=== PATIENT | female | born 1965 | race Caucasian/White ===

== ENCOUNTER → 2019-07-13 | Outpatient (CLI) | payer BC ==
--- NOTE | 2019-07-13 09:58 | REP ---
Clinical: Persistent asthma. Technique: Axial noncontrast images from the thoracic inlet to the upper abdomen with coronal and sagittal re-formations. Findings: Bilateral lung francois are well-aerated and clear. No consolidation, nodule or mass. No effusion or pneumothorax. Tracheobronchial tree is patent. No adenopathy. Mediastinum demonstrates relatively normal thoracic aorta, pulmonary vasculature, and heart/pericardium. Surrounding musculoskeletal structures are intact. Impression: No acute mediastinal or pleuroparenchymal process. Electronically Signed by Hao Mandujano MD 07/13/2019 09:49 A
== END ==
LOC: M RAD 08:55
PROVIDERS: ATTEND Nurse Practitioner Adult Health
DX: R91.8 Other nonspecific abnormal finding of lung field (principal)

== ENCOUNTER → 2020-07-17 | Outpatient (CLI) | payer BC ==
--- NOTE | 2020-07-17 16:06 | REP ---
INDICATION: ABN FINDINGS LUNG FIELD. COMPARISON: Chest CT without IV contrast dated 07/13/2019. TECHNIQUE: Chest CT without IV contrast. FINDINGS: There are no infiltrates or pleural effusions. There are no masses or nodules. The lung francois are otherwise clear. I suspect there is mild bronchiectasis. This should be confirmed clinically. There is no mediastinal or axillary lymph node enlargement. The thoracic aorta is unremarkable. Cardiac size is normal. The visualized upper abdominal contents are unremarkable. IMPRESSION: Essentially negative CT study of the chest except for possibly mild bronchiectasis. This should be confirmed clinically. <Electronically signed by Hank Carl > 07/17/20 [id number]
== END ==
LOC: M RAD 11:11
PROVIDERS: ATTEND Nurse Practitioner Adult Health
DX: R91.8 Other nonspecific abnormal finding of lung field (principal)

== ENCOUNTER → 2021-02-04 | Outpatient (CLI) | payer BC ==
--- NOTE | 2021-02-04 10:32 | REP ---
INDICATION: ABN FINDING OF LUNG, NICOTINE DEPENDENCE COMPARISON: 07/17/2020 TECHNIQUE: Axial noncontrast images from the thoracic inlet to the upper abdomen with coronal and sagittal reformations. This CT examination was performed using the following dose reduction techniques: Automated exposure control, adjustment of mA and/or kv according to the patient's size, and use of iterative reconstruction technique. FINDINGS: The bilateral lung francois are well aerated and clear. No consolidation, nodule or mass. No effusion. No pneumothorax. Tracheobronchial tree is patent and relatively normal. Very minimal bronchiectasis is again suggested but stable. No adenopathy. Thoracic aorta, pulmonary vasculature, and heart/pericardium are within normal limits. Surrounding musculoskeletal structures intact. Limited upper abdomen demonstrates normal bilateral adrenal glands. IMPRESSION: No acute mediastinal or pleuroparenchymal process. <Electronically signed by Hao Mandujano > 02/04/21 1020
== END ==
LOC: M RAD 09:57
PROVIDERS: ATTEND Nurse Practitioner Adult Health
DX: R91.8 Other nonspecific abnormal finding of lung field (principal); F17.208 Nicotine dependence, unspecified, with other nicotine-induced disorders

== ENCOUNTER → 2022-12-08 | Outpatient (CLI) | payer BC | LOC: M RAD 10:43 | PROVIDERS: ATTEND Nurse Practitioner Adult Health | DX: J45.40 Moderate persistent asthma, uncomplicated (principal) ==

== ENCOUNTER → 2024-06-06 | Outpatient (CLI) | payer BC | LOC: M PLAIMG 12:35 | PROVIDERS: ATTEND Otolaryngology | DX: J33.0 Polyp of nasal cavity (principal) ==

== ENCOUNTER → 2024-08-24 | Outpatient (CLI) | payer BC ==
[~2024-08-24] MED LIST: BREO1INH INH; LOSA25TA13 PO; VENL37.598 PO; XHAN93MI
== END ==
LOC: M EKG 10:38
PROVIDERS: ATTEND Anesthesiology
DX: I10 Essential (primary) hypertension (principal)

== ENCOUNTER 2024-08-29 10:25 | Day surgery (SDC) | payer BC ==
[~2024-08-29] VITALS: Ht 154.9 cm; Wt 59.1 kg
[2024-08-29] MEDS ORDERED: SUGAMMADEX SODIUM 500 MG/5 ML VIAL (BRIDION) As Ordered ONE (13:47)
[2024-08-29] MEDS ORDERED: propofoL 200 MG/20 ML VIAL As Ordered ONE (13:47)
[2024-08-29] MEDS ORDERED: LIDOCAINE 2% 100MG/5ML SDV (FOR ANES.) As Ordered ONE (13:47)
[2024-08-29] MEDS ORDERED: ROCURONIUM BROMIDE 50MG/5ML VIAL As Ordered ONE (13:47)
[2024-08-29] MEDS ORDERED: ONDANSETRON 4MG 2ML VIAL As Ordered ONE (13:49)
[2024-08-29] MEDS ORDERED: MIDAZOLAM INJ 2MG/2ML VIAL As Ordered ONE (14:10)
[2024-08-29] MEDS ORDERED: fentaNYL 250 MCG/5 ML INJECTION As Ordered ONE (14:10)
[2024-08-29] MEDS ORDERED: PHENYLephrine 500MCG 5ML (100MCG/ML) SYRINGE As Ordered ONE (14:55)
[2024-08-29] MEDS ORDERED: ACETAMINOPHEN 1000MG/100ML IV BAG As Ordered ONE (14:58)
[2024-08-29] MEDS: OXYMETAZOLINE 0.05% NASAL SPRAY (AFRIN) As Ordered ONE (15:26)
[2024-08-29] MEDS: COCAINE 4% 4ML NASAL SOLUTION BTL As Ordered ONE (15:28)
[2024-08-29] MEDS: LIDOCAINE W/EPINEPHRINE 1% 20ML VIAL As Ordered ONE (16:10)
[2024-08-29] MEDS ORDERED: HYDROMORPHONE HCL 0.5 MG/ 0.5 ML SYRINGE IV PRN (16:15)
[2024-08-29] MEDS ORDERED: fentaNYL 100 MCG/2 ML INJECTION IV PRN (16:15)
[2024-08-29] MEDS ORDERED: ONDANSETRON 4MG 2ML VIAL IV PRN (16:15)
[2024-08-29] MEDS: oxyCODONE 5MG TAB PO PRN (16:49)
[2024-08-29] MEDS ORDERED: LR 1,000 ML IV SCH (17:15)
[2024-08-29] MEDS ORDERED: ANEXSIA, NORCO 7.5MG/325MG TABLET(HYDROCODONE/APAP) PO PRN (17:15)
[2024-08-29 17:35] VITALS: BP 150/76; TEMP 98.4; O2SAT 95
== END 2024-08-29 17:50 | disposition home or self-care (01) ==
LOC: M SDC 10:25
PROVIDERS: ATTEND Otolaryngology
DX: J32.8 Other chronic sinusitis (principal); J33.0 Polyp of nasal cavity; J45.40 Moderate persistent asthma, uncomplicated; I10 Essential (primary) hypertension; Z79.51 Long term (current) use of inhaled steroids; Z79.899 Other long term (current) drug therapy; Z90.89 Acquired absence of other organs; Z87.891 Personal history of nicotine dependence; Z90.49 Acquired absence of other specified parts of digestive tract; Z88.6 Allergy status to analgesic agent
CPT/HCPCS: 31257; 31267; 31276; 61782; 88305; A6024; C9143; J0131; J1100; J2250; J2371; J2405; J3010

== ENCOUNTER → 2025-03-13 | Outpatient (CLI) | payer BC | LOC: M RAD 10:01 | PROVIDERS: ATTEND Nurse Practitioner Adult Health | DX: J47.9 Bronchiectasis, uncomplicated (principal) ==